=== PATIENT | female | born 1975 | race Caucasian/White ===

== ENCOUNTER 2019-11-11 12:13 | Emergency (ER) | payer MEDICAID ==
[~2019-11-11] VITALS: Ht 167.6 cm; Wt 96.2 kg
[2019-11-11 12:22] VITALS: Ht 167.6 cm; Wt 96.2 kg
[2019-11-11 14:08] LABS: BASOPHIL % 0.6 % (0-2); PLATELET COUNT 303 x10^3mcL (130-400); RED CELL DISTRIBUTION WIDTH 13.5 % (11.5-14.5)
[2019-11-11 14:21] LABS: CARBON DIOXIDE 28.4 mmol/L (21-32); CHLORIDE SERUM 102 mmol/L (98-107); CREATININE SERUM 0.9 mg/dL (0.6-1.0); GFR1 > 60 mL/min; GLUCOSE SERUM 98 mg/dL (74-106); POTASSIUM SERUM 3.4 mmol/L (3.5-5.1); SODIUM SERUM 139 mmol/L (136-145)
[2019-11-11 14:24] LABS: T3 TOTAL 1.6 ng/mL
[2019-11-11 14:26] LABS: ALBUMIN 3.5 g/dL (3.4-5.0); ALKALINE PHOSPHATASE 122 U/L (46-116); ALT/SGPT 99 U/L (14-59); AST/SGOT 125 U/L (15-37); BILIRUBIN TOTAL 0.3 mg/dL (0.20-1.00); CHOLESTEROL 158 mg/dL (<200); HDL CHOLESTEROL 53 mg/dL (40-60); TOTAL PROTEIN, SERUM 7.6 g/dL (6.4-8.2); TRIGLYCERIDES 113 mg/dL (<150)
[2019-11-11 14:57] LABS: FREE T4 0.88 ng/dL (0.76-1.46); FREE THYROXINE INDEX 3.1 ug/dL (1.4-4.5); T4(THYROXINE) 10.1 ug/dL (4.7-13.3)
[2019-11-11 16:01] VITALS: BP 156/102
== END 2019-11-11 16:01 | disposition home or self-care (01) ==
LOC: ED 12:13
PROVIDERS: Specialist
DX: I10 Essential (primary) hypertension (principal); R11.2 Nausea with vomiting, unspecified; R51 Headache; E66.9 Obesity, unspecified; Z98.890 Other specified postprocedural states; Z90.89 Acquired absence of other organs; Z90.49 Acquired absence of other specified parts of digestive tract
CPT/HCPCS: 84439; J3490; Q0162

== ENCOUNTER 2020-01-09 17:21 | Emergency (ER) | payer MEDICAID ==
[~2020-01-09] VITALS: Ht 167.6 cm; Wt 98.0 kg
[2020-01-09 17:35] VITALS: Ht 167.6 cm; Wt 98.0 kg
[2020-01-09 18:04] LABS: microscopic required? NO
[2020-01-09 18:13] LABS: UA SPECIFIC GRAVITY >=1.030 (1.005-1.035); urine erythrocyte NEGATIVE (NEGATIVE)
[2020-01-09 18:17] LABS: BASOPHIL % 0.4 % (0-2); PLATELET COUNT 355 x10^3mcL (130-400); RED CELL DISTRIBUTION WIDTH 13.5 % (11.5-14.5)
[2020-01-09 18:28] LABS: ALBUMIN 3.8 g/dL (3.4-5.0); ALKALINE PHOSPHATASE 134 U/L (46-116); ALT/SGPT 89 U/L (14-59); AST/SGOT 135 U/L (15-37); BILIRUBIN TOTAL 0.3 mg/dL (0.20-1.00); CARBON DIOXIDE 28.4 mmol/L (21-32); CHLORIDE SERUM 101 mmol/L (98-107); GFR1 > 60 mL/min; GLUCOSE SERUM 105 mg/dL (74-106); LIPASE 156 IU/L (73-393); SODIUM SERUM 140 mmol/L (136-145); TOTAL PROTEIN, SERUM 8.1 g/dL (6.4-8.2)
[2020-01-09 18:36] LABS: CALCIUM 8.9 mg/dL (8.5-10.1)
[2020-01-09 18:38] LABS: POTASSIUM SERUM 2.9 mmol/L (3.5-5.1)
[2020-01-09 21:58] VITALS: BP 165/102
== END 2020-01-09 21:58 | disposition home or self-care (01) ==
LOC: ED 17:21
PROVIDERS: Emergency Medicine
DX: E87.6 Hypokalemia (principal); I95.9 Hypotension, unspecified; R10.12 Left upper quadrant pain; R11.10 Vomiting, unspecified; M25.552 Pain in left hip; E66.9 Obesity, unspecified; Z90.89 Acquired absence of other organs; Z90.49 Acquired absence of other specified parts of digestive tract
CPT/HCPCS: J1885; J2405; J7030